=== PATIENT | female | born 1955 | race Caucasian/White ===

== ENCOUNTER 2017-02-21 07:34 | Day surgery (SDC) | payer BC ==
[~2017-02-21 07:34] MED LIST: Buffered Lidocaine 0.9% SYRIN* 5 ML/SYR SYRINGE INTRADERM ONE; Buffered Lidocaine 0.9% SYRIN* 5 ML/SYR SYRINGE ONE
[2017-02-21] MEDS ORDERED: Dexamethasone IV* 4 MG/ML 1 ML (4 MG) ONE (08:36)
[2017-02-21] MEDS ORDERED: Lidocaine 2% PF * 5 ML VIAL ONE (08:36)
[2017-02-21] MEDS ORDERED: Ondansetron INJ* 2 MG/ML VIAL ONE (08:36)
[2017-02-21] MEDS ORDERED: Cisatracurium* 2 MG/ML MDV 5 ML ONE (08:36)
[2017-02-21] MEDS ORDERED: Propofol* 10 MG/ML 20 ML BTL IV PUSH ONE (08:36)
[2017-02-21] MEDS ORDERED: fentaNYL* 50 MCG/ML 2 ML VIAL (100 MCG VIAL) ONE ×2 (08:36→12:09)
[2017-02-21] MEDS ORDERED: Ketorolac INJ* 30 MG/ML 1 ML VIAL ONE (08:36)
[2017-02-21] MEDS ORDERED: Midazolam* 1 MG/ML 5 ML VIAL (5 MG) ONE (08:37)
[2017-02-21] MEDS ORDERED: KETAMINE HCL* 50 MG/ML 10 ML VIAL ONE (08:37)
[2017-02-21] MEDS ORDERED: Bupivacaine 0.25% EPI 200,000* 30 ML SDV ONE (09:45)
[2017-02-21] MEDS ORDERED: ceFAZolin 2 GM PREMIX(*) 2 GM/50 ML BAG IVPB ONE (09:53)
[2017-02-21] MEDS ORDERED: fentaNYL* 50 MCG/ML 2 ML VIAL (100 MCG VIAL) IV PRN (10:52)
[2017-02-21] MEDS ORDERED: HYDROmorphone* 1 MG/ML 1 ML SYR IV PRN (10:52)
[2017-02-21] MEDS ORDERED: oxyCODONE/Acetamin 5/325 MG* TAB PO PRN (10:52)
[2017-02-21] MEDS ORDERED: DiMENhydriNATE IV* 50 MG/ML VIAL IV PUSH PRN (10:54)
[2017-02-21] MEDS ORDERED: Iohexol 180 (CONTRAST) 10 ML SDV IV ONE ×2 (11:24→11:48)
[2017-02-21] MEDS ORDERED: Bacitracin OINTMENT* 1 TUBE ONE (12:18)
--- NOTE | 2017-02-21 12:18 | SURGPN ---
Brief Operative Note - Surgery Procedures: Procedures Pre-OP Diagnoses: chronic cholecystitis Post-op Diagnosis: same Procedure: Laparoscopic cholecystectomy Surgeon: Lc Asst: Tamara Anethesia: SALMA Dillon EBL: 50cc IVF: [id number] Specimen: gallbladder Drains: #10 LYDIA
--- NOTE | 2017-02-21 12:40 | RAD ---
INDICATION: Intraoperative cholangiogram COMPARISONS: None relevant TECHNIQUE: Fluoroscopy was provided for an intraoperative cholangiogram. Total fluoroscopy time is: 43 seconds FINDINGS: Cine images demonstrate contrast within the biliary tree, Johan through the cystic duct. Contrast is noted within the duodenum. IMPRESSION: FLUOROSCOPY WAS PROVIDED FOR AN INTRAOPERATIVE CHOLANGIOGRAM CPT II Codes: 6045F
[2017-02-21] MEDS ORDERED: oxyCODONE/Acetamin 5/325 MG* TAB ONE (14:48)
[2017-02-21 14:51] VITALS: BP 112/62
[2017-02-21] MEDS ORDERED: DiMENhydriNATE IV* 50 MG/ML VIAL ONE (14:52)
--- NOTE | 2017-02-23 10:03 | OP ---
CC: Dr. Oralia Whatley; [facility] OPERATIVE REPORT: DATE OF OPERATION: 02/21/17 DATE OF : 51 SURGEON: Fernie Platt MD RAILROAD SIGNAL OPERATOR: TERRA Lemus ANESTHESIOLOGIST: Dr. Dillon. ANESTHESIA: General anesthesia. PRE-OP DIAGNOSIS: Chronic cholecystitis. POST-OP DIAGNOSIS: Chronic cholecystitis. OPERATIVE PROCEDURE: Laparoscopic cholecystectomy. ESTIMATED BLOOD LOSS: Minimal. FLUIDS: Crystalloid fluid given less than 3L. SPECIMEN: Gallbladder. DRAINS: A #10 LYDIA drain left in Ascencio's pouch. COUNTS: Lap pad count and instrument count correct at the end of procedure. DESCRIPTION OF PROCEDURE: Ms. Clark was identified in the preoperative area, marked and then brou ght to the operating room, placed in the operating room table in a supine position. Preoperative an tibiotics were given. Sequential devices were placed on bilateral lower extremities. General anest hesia was induced. The patient's abdomen was prepped and draped in the standard surgical fashion an d a time-out was performed. Folds of the umbilicus were elevated anteriorly and a Veress needle was inserted into the abdominal cavity, which was then allowed to insufflate to a pressure of 15 mmHg. The patient tolerated the in sufflation well. An incision was made over the Veress needle which was removed and a 5 mm trocar wa s inserted into the abdominal cavity. Laparoscope was inserted through this. There was no evidence of injury from the trocar insertion or from the Veress needle. Attention was turned to the right u pper quadrant. Gallbladder was identified. Additional trocars were placed in the following positio n, 12 mm in the subxiphoid area and two 5-mm along the right costal margin. The fundus of the gallbladder was grasped and elevated above the liver. The infundibulum was identi fied and retracted towards the right lower quadrant. We could see the common bile duct. The perito neum of the lateral aspect of the gallbladder was taken with electrocautery. This was very dense an d somewhat difficult to get through. We extended this up the lateral aspect of the gallbladder and then similarly up the medial aspect of the gallbladder. Cystic duct was identified. It was doubly clipped and ligated. The peritoneum of what looked to be the cystic duct was incised. The node of Calot was reflected posteriorly. This region of gallbladder showed a lot of chronic inflammatory ch anges with robust structures that I could not completely delineate to be not biliary. For this reas on, a cholangiogram was then performed. We incised at the infundibulum of the gallbladder and inser kris the catheter. We injected a contrast and that showed that we were still in the proximal portion of the gallbladder and that we were safe to extend our dissection more posteriorly. This was then performed clipping structures that were unclear if they were arterial or just fibrotic changes. We were then able to elevate the gallbladder completely up and out of its fossa. The cystic duct was t hen doubly clipped and ligated and the gallbladder was removed from the liver bed and placed in an e ndoscopic retrieval bag brought out through the subxiphoid port site. Review of the cystic duct pasquale mp showed no bile. There was no bleeding. Hemostasis was excellent. A decision was made to place a #10 LYDIA drain in because of the extent of the dissection, the tray was brought up to the lateral mo st port site and sutured to the skin with 3-0 Surgipro sutures. The abdomen was then allowed to col lapse. Trocars were removed under direct vision and the additional three skin incisions were reappr oximated at the skin level. Steri-Strips and sterile dressings were applied. The patient tolerated the procedure well, was woken up in the OR and transferred to the PACU in stable condition. Case t ook approximately 2 hours and represented a significant increase of time compared to a typical proce dure of this caliber. [id number]/[facility] #: [id number]
== END 2017-02-21 15:53 | disposition home or self-care (01) ==
LOC: OR 07:34
PROVIDERS: ATTEND Surgery
DX: K80.10 Calculus of gallbladder with chronic cholecystitis without obstruction (principal); K22.70 Barrett's esophagus without dysplasia; K21.0 Gastro-esophageal reflux disease with esophagitis
CPT/HCPCS: 74300; 88304; A9270-GY; C1776; J0690; J1100; J1240; J1885; J2250; J2405; J2704; J3010

== ENCOUNTER → 2017-08-27 08:34 | Emergency (ER) | payer BC ==
--- NOTE | 2017-09-21 11:17 | UC ---
Headache HPI - HPI Summary HPI Summary: 61 yo female c/o headache after going a a drinking binge yesterday and now has a REY and feels "dehyrated" and felt a bit dizzy while at work, denies n/v/f/c - History Of Current Complaint Stated Complaint: HEADACHE, NAUSEA Time Seen by Provider: 08/27/17 09:17 Hx Obtained From: Patient Onset/Duration: Sudden Onset, Gradual Onset, Lasting Days Onset Of Symptoms: Gradual, Still Present Initially Headache Was: Moderate Currently Pain Is: Moderate - Allergies/Home Medications Allergies/Adverse Reactions: Allergies Allergy/AdvReac Type Severity Reaction Status Date / Time No Known Allergies Allergy Verified 08/27/17 09:03 PMH/Surg Hx/FS Hx/Imm Hx - Additional Past Medical History Additional PMH: Migraines Previously Healthy: Yes Other History Of: Negative For: Anticoagulant Therapy - Surgical History Surgical History: Unable to Obtain/Confirm - Family History Known Family History: Positive: Unknown - Social History Alcohol Use: Occasionally Substance Use Type: None Smoking Status (MU): Former Smoker Review of Systems Constitutional: Other - Feels dry and hung over Skin: Negative Eyes: Negative ENT: Negative Respiratory: Negative Cardiovascular: Negative Gastrointestinal: Negative Genitourinary: Negative Motor: Negative Neurovascular: Negative Musculoskeletal: Negative Neurological: Headache Psychological: Negative All Other Systems Reviewed And Are Negative: Yes Physical Exam Triage Information Reviewed: Yes Appearance: No Pain Distress Vital Signs Reviewed: Yes Eye Exam: Normal ENT Exam: Other - DRY MUCOUS MEMBERANES Dental Exam: Normal Neck exam: Normal Neck: Positive: 1 Respiratory Exam: Normal Cardiovascular Exam: Normal Abdominal Exam: Normal Musculoskeletal Exam: Normal Neurological Exam: Normal Neurological: Positive: Alert, Muscle Tone Normal Psychological Exam: Normal Skin Exam: Normal Headache Course/Dx - Course Course Of Treatment: Ordered 2L of NS for dehydration, but only had time for 1liter. Appeared more awake and alert afer 1liter and encouraged PO hydration at home - Differential Dx/Diagnosis Provider Diagnoses: Dehydration, headache Discharge - Discharge Plan Condition: Stable Disposition: HOME Patient Education Materials: Dehydration (ED) Referrals: Oralia Whatley MD [Primary Care Provider] -
== END | disposition home or self-care (01) ==
LOC: UCEAST 08:34
DX: R51 Headache (principal); E86.0 Dehydration; Z87.891 Personal history of nicotine dependence

== ENCOUNTER 2017-08-27 08:59 | Emergency (ER) | payer BC ==
[2017-08-27] MEDS ORDERED: diPHENhydraMINE IV* 50 MG/ML 1 ml VIAL (BENADRYL) IV ONE (09:23)
[2017-08-27] MEDS ORDERED: Ketorolac INJ* 30 MG/ML 1 ML VIAL IV PUSH ONE (09:23)
[2017-08-27] MEDS ORDERED: PROCHLORPERAZINE INJ 5 MG/ML 2 ML VIAL IV ONE (09:23)
[2017-08-27] MEDS ORDERED: diPHENhydraMINE IV* 50 MG in NS 0.9% 50 ML* 50 ML IVPB ONE (09:23)
[2017-08-27] MEDS ORDERED: NS 0.9% 1000 ML* 1,000 ML IV ONE (09:23)
[2017-08-27] MEDS ORDERED: Morphine INJ* 4 MG/ML 1 ML CARPUJECT IV ONE (09:31)
--- NOTE | 2017-08-27 09:42 | ED ---
Headache - HPI Summary HPI Summary: Patient presents to the ED with CC of left sided temporal and parietal migraine which is also affecting her left eye. + photophobia, +phonophobia. She states this is her typical migraine. Symptoms begun 2 nights ago and have been intermittent with now worsening symptoms this morning. 3 "shots" of imitrex without relief. Endorses nausea. Denies V/C/D. Denies tearing from the eye. Pain is aggravated by sound and positioning and better with rest and darkness. at bedside. PMHx includes migraine, chronic cholecystitis, - History Of Current Complaint Chief Complaint: EDHeadache Stated Complaint: MIGRAINE Time Seen by Provider: 08/27/17 09:07 Hx Obtained From: Patient, Family/Engineering Professionals Onset/Duration: Gradual Onset, Started days ago Initially Headache Was: Initial Pain Scale(0-10)= - 9 Currently Pain Is: Current Pain Scale(0-10)= - 9 Timing: Intermittent, Lasting:, Hours Character: Throbbing, Pressure, Migraine Location of Headache: Temporal, Parietal Aggravating Factor: Nothing, Position Change, Bright Lights Allevating Factors: Rest Associated Signs And Symptoms: Nausea - Risk Factors SAH Risk Factors: Negative Meningitis Risk Factors: Negative SDH Risk Factors: Negative Temporal Arteritis Risk Factors: Female, , Greater Than 60 Years Old - Allergies/Home Medications Allergies/Adverse Reactions: Allergies Allergy/AdvReac Type Severity Reaction Status Date / Time No Known Allergies Allergy Verified 08/27/17 09:03 PMH/Surg Hx/FS Hx/Imm Hx Previously Healthy: Yes Endocrine/Hematology History: Denies: Hx Anticoagulant Therapy, Hx Diabetes, Hx Thyroid Disease Cardiovascular History: Reports: Hx Hypertension Denies: Hx Pacemaker/ICD Respiratory History: Denies: Hx Asthma, Hx Chronic Obstructive Pulmonary Disease (COPD) History: Denies: Hx Renal Disease Neurological History: Denies: Hx Dementia, Hx Seizures Psychiatric History: Denies: Hx Substance Abuse - Cancer History Hx Chemotherapy: No Hx Radiation Therapy: No - Immunization History Date of Tetanus Vaccine: UNK Date of Influenza Vaccine: Fall 2011 Hx Pertussis Vaccination: No Immunizations Up to Date: Unable to Obtain/Confirm Infectious Disease History: No Infectious Disease History: Denies: Hx Clostridium Difficile, Hx Hepatitis, Hx Human Immunodeficiency Virus (HIV), Hx Shingles, Hx Tuberculosis, Traveled Outside the [place] in Last 30 Days - Family History Known Family History: Positive: Unknown - Social History Occupation: Employed Full-time Lives: With Family Alcohol Use: Occasionally Hx Substance Use: No Substance Use Type: Reports: None Smoking Status (MU): Former Smoker Review of Systems - ROS Summary Review of Systems Summary: Constitutional: The patient denies fever, REY. HEENT: Head: The patient endorses REY, photophonia and phonophobia. Eyes: The patient denies diplopia, blurry vision. Endorses pain behind the L eye. Throat: The patient denies sore throats or hoarseness. Cardiovascular: The patient denies chest pain, palpitations, syncope, night cramps, or orthostasis. Respiratory: The patient denies cough, sputum production, hemoptysis, dyspnea, wheezing. Gastrointestinal: The patient denies odynophagia, dysphagia, hematemesis, melenemesis. Denies abdominal pain, but endorses nausea. Denies vomiting. Denies constipation or diarrhea. Genitourinary: Patient denies dysuria. Patient denies back pain. Denies vaginal discharge, vaginal bleeding. Denies other urinary symptoms. Muscles: The patient denies myalgia, strain or weakness. Joints: The patient denies arthralgia and/or arthritis. Neurologic: The patient denies loss of consciousness, or seizure. Constitutional: Negative Negative: Fever, Chills, Fatigue, Skin Diaphoresis Positive: Photophobia ENT: Negative Cardiovascular: Negative Respiratory: Negative Positive: no symptoms reported, see HPI Musculoskeletal: Negative Positive: Headache Psychological: Normal All Other Systems Reviewed And Are Negative: Yes Physical Exam - Summary Physical Exam Summary: Appearance: WDW, appears uncomfortable but alert Skin: Soft dry skin, no lesions. Nailbeds pink with no cyanosis or clubbing. No petechia noted. Eyes: MARLEY, EOMI, Conjunctiva pink with no redness or exudates. Mouth: Dentition without lesions. Moist mucosa Neck: Full range of motion. Palpable thyroid. Trachea at midline. No lymphadenopathy. Pulm: Chest symmetrical expansion. No deformities on posterior chest wall. Lungs clear to auscultation and percussion, without adventitious sounds. CV: No JVD. No deformities on anterior chest wall. Heart sounds. RRR, Normal S1 and single S2. No S3, S4, rubs, or murmurs. Carotids 2+ bilaterally without bruits. exam not performed GI: Bowel sounds WNL in all 4 quadrants. No pain on deep palpation of all 4 quadrants. Musculoskeletal: Flexion and extension of neck without limitations. ROM WNL in all extremities. No deformities noted. Pulses full and equal. Neuro: Motor strength is 5/5 in upper and lower extremities bilaterally. A&OX3 Psych: Logical, coherent Triage Information Reviewed: Yes Vital Signs On Initial Exam: Initial Vitals Temp Pulse Resp BP Pulse Ox 96.9 F 99 19 140/74 96 08/27/17 09:00 08/27/17 09:00 08/27/17 09:00 08/27/17 09:00 08/27/17 09:00 Vital Signs Reviewed: Yes Appearance: Positive: Well-Nourished, Ill-Appearing Skin: Positive: Warm, Skin Color Reflects Adequate Perfusion Head/Face: Positive: Normal Head/Face Inspection Eyes: Positive: EOMI, MARLEY, Conjunctiva Clear ENT: Positive: Hearing grossly normal Neck: Positive: Supple, No Lymphadenopathy Respiratory/Lung Sounds: Positive: Clear to Auscultation Cardiovascular: Positive: RRR, Pulses are Symmetrical in both Upper and Lower Extremities Musculoskeletal: Positive: Strength/ROM Intact Neurological: Positive: Speech Normal Psychiatric: Positive: Normal, Affect/Mood Appropriate Diagnostics - Vital Signs Vital Signs Temp Pulse Resp BP Pulse Ox 08/27/17 09:00 96.9 F 99 19 140/74 96 - Laboratory Lab Statement: Any lab studies that have been ordered have been reviewed, and results considered in the medical decision making process. Headache Course/Dx - Course Course Of Treatment: During the course of treatment, patient was evaluated for REY. Hx of migraines and states this feels similar to her previous episodes. 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 Neurologist is Dr. Mora. She states every time she comes to the ED she has a "protocol" and is given morphine. She does not want to try other medications. I have discussed that morphine is not indicated in the approach to migraines, and would like to try other medications which are indicated. She is requesting a call to her Dr. Mora. 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 I have not found a "protocol" for Mrs. Clark at this time but insists this is what they do each time they are in the ED and they would like their own protocol which they know works. I have agreed to give them a dose of 4mg IV morphine with benadryl and compazine. Dr. Au calls back at 10am stating there is no protocol in the ED for Mrs. Clark. However, her at home medications indicate if she is having a migraine for 2+ days, she should be taking her Prednisone taper. She is given 60mg IV methylprednisolone. I have advised she follow up with Dr. Mora, and if he agrees this should be her protocol, I have asked it be in writing in the ED for further providers. She is OK with this plan. Upon discharge, REY down from 05/06 to 10/06. Walked to the restroom and observed steady gait. Patient is ready to be discharged. - Diagnoses Provider Diagnoses: Migraine - Physician Notifications Discussed Care Of Patient With: Geneva Au Discharge - Discharge Plan Condition: Stable Disposition: HOME Prescriptions: Ketorolac TAB * [Toradol TAB *] 10 mg PO Q6H #16 tab Ondansetron ODT TAB* [Zofran 4 MG Odt TAB*] 4 mg PO Q6H PRN #12 tab.odt MDD 4 PRN Reason: Nausea Patient Education Materials: Migraine Headache (ED) Referrals: Yves Mora MD [Medical Doctor] - 3 Days (migraine) Oralia Whatley MD [Primary Care Provider] - Additional Instructions: Please follow up with Dr. Mora regarding migraine protocol and other methods of controlling migraines at home I have given you zofran and toradol for at home medications Please follow Dr. Mora's suggestion of prednisone taper following failure with imitrex If both of these methods fail, please attempt the oral toradol 10mg with zofran 4mg sublingual and bendaryl 25mg If this continues to fail to improve symptoms, return to the ED Drink plenty of water
[2017-08-27] MEDS ORDERED: Ketorolac INJ* 60 MG/2 ML VIAL ONE (09:57)
[2017-08-27] MEDS ORDERED: methylPREDNISolone SOD 40 MG* 1 ML VIAL IV ONE (10:54)
[2017-08-27 11:38] VITALS: BP 114/59
== END 2017-08-27 11:38 | disposition home or self-care (01) ==
LOC: ED 08:59
DX: G43.909 Migraine, unspecified, not intractable, without status migrainosus (principal); R51 Headache
CPT/HCPCS: 96374; 96375; 99282; J0780; J1200; J1885; J2270; J2920

== ENCOUNTER 2022-09-08 07:30 | Observation (INO) ==
[~2022-09-08 07:30] MED LIST changes: -Buffered Lidocaine 0.9% SYRIN* 5 ML/SYR SYRINGE INTRADERM ONE; -Buffered Lidocaine 0.9% SYRIN* 5 ML/SYR SYRINGE ONE; +Buffered Lidocaine 1% SYRIN 1 ml INTRADERM ONE; +HYDROcodone/ACETAMIN 5/325 mg TAB PO PRN; +Lactated Ringers 1000 ml BAG 1,000 ML IV SCH; +Metoclopramide 5 MG/ML VIAL (10 mg) IV PRN; +Naloxone 0.4 mg VIAL 0.4 mg/ml 1 ml VIAL IV PRN; +Ondansetron 4 mg VIAL 2 MG/ML 2 ml VIAL IV PRN; +fentaNYL 100 mcg/2 ml 50 MCG/ML VIAL IV PRN
[2022-09-08] MEDS ORDERED: ceFAZolin 2 GM in NS PREMIX 2 GM/100 ML BAG IVPB ONE (08:14)
[2022-09-08] MEDS ORDERED: ROPIVACAINE 5 MG/ML 30 ML BTL (0.5%) ONE ×2 (09:03→09:14)
[2022-09-08] MEDS ORDERED: fentaNYL 100 mcg/2 ml 50 MCG/ML VIAL ONE (09:13)
[2022-09-08] MEDS ORDERED: Midazolam 2 mg/2 ml VIAL 1 mg/ml 2 ml VIAL (2 mg) ONE (09:13)
[2022-09-08] MEDS ORDERED: Dexamethasone IV 4 MG/ML VIAL 1 ml VIAL ONE ×2 (09:14→09:31)
[2022-09-08] MEDS ORDERED: Ondansetron 4 mg VIAL 2 MG/ML 2 ml VIAL ONE (09:31)
[2022-09-08] MEDS ORDERED: Phenylephrine IV 10 MG/ML 1 ml VIAL ONE (09:35)
[2022-09-08] MEDS ORDERED: Lidocaine 2% PF 5 ML VIAL ONE (09:43)
[2022-09-08] MEDS ORDERED: Ondansetron ODT 4 mg TAB 4 MG TAB PO PRN (13:10)
[2022-09-08] MEDS ORDERED: Magnesium Hydroxide LIQ 30 ML UDC PO PRN (13:10)
[2022-09-08] MEDS ORDERED: Morphine 2 MG/ML SYRINGE IV PRN (13:10)
[2022-09-08] MEDS ORDERED: Lactulose 30 ml UDC PO PRN (13:10)
[2022-09-08] MEDS ORDERED: HYDROcodone/ACETAMIN 5/325 mg TAB ONE (13:52)
[2022-09-08] MEDS ORDERED: RIZATRIPTAN 10 MG PO PRN (14:34)
[2022-09-08] MEDS: Ondansetron 4 mg VIAL 2 MG/ML 2 ml VIAL IV PRN ×2 (16:21→23:01)
[2022-09-08] MEDS: Lactated Ringers 1000 ml BAG 1,000 ML IV SCH (16:35)
[2022-09-08] MEDS: ceFAZolin 1 GM ADVAN 1 GM in NS 0.9% 50 ML 50 ML IVPB SCH (18:47)
[2022-09-08] MEDS ORDERED: Prochlorperazine 5 mg/ml 2 ml VIAL (10 mg) IV ONE (19:05)
[2022-09-08] MEDS: Magnesium Hydroxide LIQ 30 ML UDC PO SCH (20:36)
[2022-09-08] MEDS ORDERED: Doxepin 10 mg CAP (NF) PO SCH (21:00)
[2022-09-09] MEDS: ceFAZolin 1 GM ADVAN 1 GM in NS 0.9% 50 ML 50 ML IVPB SCH ×2 (03:19→10:27)
[2022-09-09] MEDS: Lactated Ringers 1000 ml BAG 1,000 ML IV SCH (03:21)
[2022-09-09 06:14] LABS: Hematocrit 37 % (35-47); Hemoglobin 12.1 g/dL (12.0-16.0); Platelet Count 203 10^3/uL (150-450)
[2022-09-09 06:53] LABS: Calcium 8.7 mg/dL (8.6-10.3); Creatinine, Serum 0.81 mg/dL (0.51-0.95); Potassium 4.2 mmol/L (3.5-5.0)
[2022-09-09] MEDS: Magnesium Hydroxide LIQ 30 ML UDC PO SCH (07:51)
[2022-09-09] MEDS ORDERED: Pantoprazole 20 mg TAB (NF) PO SCH (09:00)
[2022-09-09] MEDS ORDERED: Vitamin THERAPEUTIC TAB PO SCH (09:00)
[2022-09-09 11:30] VITALS: BP 140/77
== END 2022-09-09 13:20 | disposition home or self-care (01) ==
LOC: AA 07:44 → INTOOBSV 07:44 → SSU 15:51
PROVIDERS: ADMIT Orthopaedic Surgery Adult Reconstructive Orthopaedic Surgery; ATTEND Orthopaedic Surgery Adult Reconstructive Orthopaedic Surgery